=== PATIENT | female | born 1995 | race Caucasian/White ===

== ENCOUNTER 2017-09-14 17:37 | Emergency (ER) | payer BC, MEDICAID ==
[~2017-09-14] VITALS: Ht 160 cm; Wt 52.2 kg
[~2017-09-14 17:37] MED LIST: DEPO PROVERA; MULT-974 PO; NITR-65 PO; SULF1TAB38 PO
[2017-09-14] MEDS ORDERED: KETOROLAC 30 MG/ML VIAL IVP ONE (18:15)
[2017-09-14 18:24] LABS: BASOPHILS # (AUTO) 0.1 10^3/uL (0.0-0.1); BASOPHILS % (AUTO) 1 % (0-10); EOSINOPHILS # (AUTO) 0.1 10^3/uL (0.0-0.3); EOSINOPHILS % (AUTO) 2 % (0-10); HEMATOCRIT 34 % (35-52); HEMOGLOBIN 11.6 G/DL (11.5-16.0); LYMPHOCYTES # (AUTO) 3.1 X 10^3 (1.0-4.0); LYMPHOCYTES % (AUTO) 39 % (12-44); MEAN CORPUSCULAR HEMOGLOBIN 29 PG (25-34); MEAN CORPUSCULAR HGB CONC 34 G/DL (32-36); MEAN CORPUSCULAR VOLUME 86 FL (80-99); MEAN PLATELET VOLUME 12.5 FL (7.4-10.4); MONOCYTES # (AUTO) 0.6 X 10^3 (0.0-1.0); MONOCYTES % (AUTO) 8 % (0-12); NEUTROPHILS # (AUTO) 4.2 X 10^3 (1.8-7.8); NEUTROPHILS % (AUTO) 51 % (42-75); PLATELET COUNT 190 10^3/uL (130-400); RED CELL DISTRIBUTION WIDTH 13.1 % (10.0-14.5); WHITE BLOOD COUNT 8.1 10^3/uL (4.3-11.0)
--- NOTE | 2017-09-14 18:24 | ED Back Pain ---
General Chief Complaint: General Problems/Pain Stated Complaint: CHEST PAIN/BACK PAIN Nursing Triage Note: ARRIVED VIA EMS FROM HOME. COMPLAINS OF CHRONIC BACK PAIN THAT IS WORSE TODAY WITH SOME CHEST PAIN AND SOA. WHEN ASKED WHAT HER MAIN COMPLAINT WAS SHE STATES BACK PAIN. THE PAIN STARTED AFTER SHE HAD HER CHILD 15 MONTHS AGO. Nursing Sepsis Screen: No Definite Risk Source of Information: Patient, Family (grandmother), Spouse (fiance) Exam Limitations: No Limitations History of Present Illness Date Seen by Provider: Sep 14, 2017 Time Seen by Provider: 17:55 Initial Comments Patient presents to the ER by private conveyance with a chief complaint of chronic several year long back pain but today has had an exacerbation. She says last time she saw her doctor for her back pain was about 6 months ago at [facility]. At that time they prescribed her ketorolac and told her to take it once a day as a preventative and she says after several days it did help her back pain but she has ran out of that pain medicine and not taken anything since. She did take 600 mg ibuprofen today but did not feel that it made a difference. She says the back pain starts in her low back radiates to both sides and wraps up around her ribs towards the center of her chest. When it gets really bad like today she says it makes hard for her to take deep breaths. She has a history of depression and anxiety. She is not on any control but her last menstrual period was last week. She says her periods are are regular and she has them 2-3 times a month. Patient says she received a liter of fluids from EMS and 50 g of fentanyl en route and that helped tremendously with her back pain. She says she does not want narcotics because they make her drowsy. Her grandmother says the reason she called the EMS today is because after they ate dinner tonight [place] food about 10 minutes later the patient was screaming in agony in the bathroom and vomiting. She is afraid that maybe it's her gallbladder. She's never had her gallbladder worked up before. She says she was told when she was 2 years ago that she had some gallbladder like symptoms. The patient had no fevers chills cough or diarrhea. Last stool was today normal formed. Patient had no surgeries. She says she's been told she might have polycystic ovarian syndrome and has been sent to a specialist to have this worked up. She has maybe appointment in [place] but she does not wear the doctor's name and has not attended to this appointment yet. Patient denies any primary history of coronary artery disease or dysrhythmias. She denies any primary family history of early onset cardiac , early onset cardiac disease or dysrhythmias. She says she does however have family members with diabetes and gallbladder. Allergies and Home Medications Allergies Coded Allergies: Azithromycin (Unverified Allergy, Mild, 04/11/09) Patient Home Medication List Home Medication List Reviewed: Yes Constitutional: No chills, No diaphoresis EENTM: No hearing loss, No ear pain, No blurred vision, No eye pain Respiratory: No cough, No phlegm; short of breath; No stridor, No wheezing Cardiovascular: see HPI, chest pain; No edema, No Hx of Intervention, No palpitations, No syncope, No vascular heart diseas Gastrointestinal: No abdominal pain, No constipation, No diarrhea; nausea, vomiting Genitourinary: No discharge, No dysuria Control/STD Prophylaxis: None Musculoskeletal: see HPI, back pain (paraspinous lumbar and thoracic muscles), muscle stiffness Skin: No pruritus, No rash Past Endzuyo-Lfevba-Vkwill Hx Patient Social History Alcohol Use: Denies Use Recreational Drug Use: No Smoking Status: Current Everyday Smoker Type Used: Cigarettes (0.5 ppd) Recent Foreign Travel: No Contact w/Someone Who Travel: No Recent Infectious Disease Expo: No Past Medical History Surgeries: No Respiratory: No Cardiac: No Neurological: No : No Gastrointestinal: No Musculoskeletal: Yes Scoliosis, Chronic Back Pain Endocrine: No HEENT: No Cancer: No Psychosocial: Yes Depression Integumentary: No Physical Exam Vital Signs Vital Signs - First Documented 09/14/17 17:37 Temp 98.0 Pulse 82 Resp 16 B/P (MAP) 125/81 (96) Pulse Ox 98 O2 Delivery Room Air Capillary Refill : Less Than 3 Seconds General Appearance: No Apparent Distress, Thin HEENT: PERRL/EOMI, Normal ENT Inspection, Pharynx Normal, Moist Mucous Membranes Neck: Full Range of Motion, Non Tender, Supple Cardiovascular: Regular Rate, Rhythm, Normal Peripheral Pulses Respiratory: Chest Non Tender, Lungs Clear, Normal Breath Sounds, No Accessory Muscle Use, No Respiratory Distress Peripheral Pulses: 2+ Dorsalis Pedis (R), 2+ Left Dors-Pedis (L), 2+ Radial Pulses (R), 2+ Radial Pulses (L) Gastrointestinal: Normal Bowel Sounds, Non Tender, Soft Back: Normal Inspection, No Vertebral Tenderness, Other (mild tenderness to palpation in the left especially paraspinous muscles of the thoracic and lumbar spine.) Neurologic/Psychiatric: Alert, Oriented x3, Depressed Affect, Other (anxious) Skin: Normal Color, Warm/Dry Progress/Results/Core Measures Results/Orders Lab Results Laboratory Tests Test 09/14/17 17:50 09/14/17 18:32 Range/Units White Blood Count 8.1 4.3-11.0 10^3/uL Red Blood Count 4.00 L 4.35-5.85 10^6/uL Hemoglobin 11.6 11.5-16.0 G/DL Hematocrit 34 L 35-52 % Mean Corpuscular Volume 86 80-99 FL Mean Corpuscular Hemoglobin 29 25-34 PG Mean Corpuscular Hemoglobin Concent 34 32-36 G/DL Red Cell Distribution Width 13.1 10.0-14.5 % Platelet Count 190 130-400 10^3/uL Mean Platelet Volume 12.5 H 7.4-10.4 FL Neutrophils (%) (Auto) 51 42-75 % Lymphocytes (%) (Auto) 39 12-44 % Monocytes (%) (Auto) 8 0-12 % Eosinophils (%) (Auto) 2 0-10 % Basophils (%) (Auto) 1 0-10 % Neutrophils # (Auto) 4.2 1.8-7.8 X 10^3 Lymphocytes # (Auto) 3.1 1.0-4.0 X 10^3 Monocytes # (Auto) 0.6 0.0-1.0 X 10^3 Eosinophils # (Auto) 0.1 0.0-0.3 10^3/uL Basophils # (Auto) 0.1 0.0-0.1 10^3/uL Sodium Level 140 135-145 MMOL/L Potassium Level 3.9 3.6-5.0 MMOL/L Chloride Level 108 H 98-107 MMOL/L Carbon Dioxide Level 23 21-32 MMOL/L Anion Gap 9 5-14 MMOL/L Blood Urea Nitrogen 16 7-18 MG/DL Creatinine 0.81 0.60-1.30 MG/DL Estimat Glomerular Filtration Rate > 60 BUN/Creatinine Ratio 20 Glucose Level 104 70-105 MG/DL Calcium Level 9.1 8.5-10.1 MG/DL Magnesium Level 1.7 L 1.8-2.4 MG/DL Total Bilirubin 0.4 0.1-1.0 MG/DL Aspartate Amino Transf (AST/SGOT) 19 5-34 U/L Alanine Aminotransferase (ALT/SGPT) 15 0-55 U/L Alkaline Phosphatase 45 40-136 U/L Troponin I < 0.30 <0.30 NG/ML C-Reactive Protein High Sensitivity 0.23 0.00-0.50 MG/DL Total Protein 6.7 6.4-8.2 GM/DL Albumin 4.0 3.2-4.5 GM/DL Lipase 39 8-78 U/L Serum Test, Qualitative NEGATIVE NEGATIVE Urine Color YELLOW Urine Clarity CLEAR Urine pH 7 5-9 Urine Specific Flushing 1.015 L 1.016-1.022 Urine Protein NEGATIVE NEGATIVE Urine Glucose (UA) NEGATIVE NEGATIVE Urine Ketones NEGATIVE NEGATIVE Urine Nitrite NEGATIVE NEGATIVE Urine Bilirubin NEGATIVE NEGATIVE Urine Urobilinogen NORMAL NORMAL MG/DL Urine Leukocyte Esterase 1+ H NEGATIVE Urine RBC (Auto) NEGATIVE NEGATIVE Urine RBC NONE /HPF Urine WBC 2-5 /HPF Urine Squamous Epithelial Cells 2-5 /HPF Urine Crystals NONE /LPF Urine Bacteria TRACE /HPF Urine Casts NONE /LPF Urine Mucus MODERATE H /LPF Urine Culture Indicated NO Urine Opiates Screen NEGATIVE NEGATIVE Urine Oxycodone Screen NEGATIVE NEGATIVE Urine Methadone Screen NEGATIVE NEGATIVE Urine Propoxyphene Screen NEGATIVE NEGATIVE Urine Barbiturates Screen NEGATIVE NEGATIVE Ur Tricyclic Antidepressants Screen NEGATIVE NEGATIVE Urine Phencyclidine Screen NEGATIVE NEGATIVE Urine Amphetamines Screen NEGATIVE NEGATIVE Urine Methamphetamines Screen NEGATIVE NEGATIVE Urine Benzodiazepines Screen NEGATIVE NEGATIVE Urine Cocaine Screen NEGATIVE NEGATIVE Urine Cannabinoids Screen NEGATIVE NEGATIVE My Orders Orders - JOSAFAT,CADEN J Cbc With Automated Diff (09/14/17 18:15) Comprehensive Metabolic Panel (09/14/17 18:15) Hs C Reactive Protein (09/14/17 18:15) Drug Screen Stat (Urine) (09/14/17 18:15) Hcg,Qualitative Serum (09/14/17 18:15) Lipase (09/14/17 18:15) Magnesium (09/14/17 18:15) Troponin I (09/14/17 18:15) Ua Culture If Indicated (09/14/17 18:15) Chest Pa/Lat (2 View) (09/14/17 18:15) Saline Lock/Iv-Start (09/14/17 18:15) Ketorolac Injection (Toradol Injection) (09/14/17 18:15) Ekg Tracing (09/14/17 18:15) Continuous Ekg Monitoring (09/14/17 18:15) Magnesium Oxide Tablet (Mag Ox Tablet) (09/14/17 19:00) Medications Given in ED Current Medications Medications Dose Ordered Sig/Ambrosio Route Start Time Stop Time Status Last Admin Dose Admin Ketorolac Tromethamine 15 mg ONCE ONCE IVP 09/14/17 18:15 09/14/17 18:19 DC 09/14/17 19:01 15 MG Magnesium Oxide 400 mg ONCE ONCE PO 09/14/17 19:00 09/14/17 19:01 DC 09/14/17 19:27 400 MG Vital Signs/I&O 09/14/17 17:37 Temp 98.0 Pulse 82 Resp 16 B/P (MAP) 125/81 (96) Pulse Ox 98 O2 Delivery Room Air Blood Pressure Mean: 96 Progress Progress Note #1: Time: 18:51 Progress Note The patient's apparent history of generalized anxiety and depression do complicate her presentation. She seems to be describing chronic back pain. Her concern today is whether or not it's coronary and whether or not it could be a gallbladder. She is having a nontender abdomen without Agee sign or McBurney' s point tenderness. She says that she hasn't been told she might have PCO S but she demonstrates no evidence of insulin resistant such as acanthosis nigricans, obesity. She does have a history of irregular periods. Would be reasonable to check a C-peptide outpatient she is rather thin and has had weight loss so type 1 diabetes although a late presentation could be considered. The patient talked all the way through telling history her spine and paraspinous muscles were palpated the first time and did not demonstrate overt evidence of any by halting her speech or wincing or any other indication she was hurting. Does not seem however that she is after secondary gains since she's made it clear that NSAIDs it worked for her in the past and she does not want narcotics. Her weight loss is certainly concerning and it sounds like she's been referred to a specialist by her primary care doctor to help work this up so we have encouraged her to keep this outpatient follow-up appointment. We'll give her some ketorolac. She has already received a liter of fluids and appears to be well hydrated. Progress Note #2: Time: 19:33 Progress Note Pain is better after the ketorolac. We have discussed it and we will put her on some NSAIDs for about 2-4 weeks as well as topical creams and have her follow- up with her specialist at her primary care doctor. Initial ECG Impression Date: Sep 14, 2017 Initial ECG Impression Time: 17:45 Initial ECG Rate: 74 Initial ECG Rhythm: Normal Sinus Initial ECG Intervals: Normal Initial ECG Impression: Normal Initial ECG Comparisson: No Previous ECG Available Comment No ST elevation or depression; no dysrhythmia. Diagnostic Imaging Diagonstic Imaging: Xray Plain Films/CT/US/NM/MRI: chest (2v) Comments VIA [facility] [place], [place] NAME: AIRAM MOHAN Nita [facility] REC#: [id number] PT STATUS: REG ER : 1995 PHYSICIAN: CADEN MAURICE MD ADMIT DATE: 09/14/17/ER Draft Date of Exam:09/14/17 CHEST PA/LAT (2 VIEW) EXAMINATION: PA and lateral chest. COMPARISON: Compared to prior study from 12/25/2012. INDICATION: Chest pain. FINDINGS: The lungs appear to be hyperinflated. This may relate to good inspiratory effort but correlation as to any signs of wheezing or air-trapping appreciated. There is no focal infiltrate. There is no effusion. There is no pneumothorax. Heart size and mediastinal contours are appropriate. Pulmonary vascularity appears normal. IMPRESSION: 1. Lungs appear hyperinflated which may relate to air trapping or good inspiratory effort. Correlation as to any history of asthma or clinical signs of wheezing appreciated. Dictated on workstation # [id number] Dict: 09/14/17 1859 Trans: 09/14/17 [id number] Interpreted by: ION CUEVAS MD Electronically signed by: Reviewed: Reviewed by Me Departure Impression Primary Impression: Back pain Qualified Codes: M54.6 - Pain in thoracic spine; G89.29 - Other chronic pain Additional Impression: Weight loss, non-intentional Disposition: 01 HOME, SELF-CARE Condition: Improved Departure-Patient Inst. Decision time for Depature: 19:34 Referrals: BEVERLY BOSWELL MD (PCP/Family) Primary Care Physician Patient Instructions: Back Exercises Add. Discharge Instructions: For the next 2 weeks start taking the meloxicam one tablet daily. If you feel like you're not getting complete resolution of your back pain in 2 weeks' take it for another 2 weeks. Follow-up with the appointment with the specialist. Afterwards follow-up with her primary care doctor to discuss whether the meloxicam helped her back and discuss what the specialist had to tell you. If you have nausea you can take one tablet of Zofran every 6 hours. If you start to have bad chest pain or acid reflux then you should stop taking the meloxicam and talk to your primary care doctor about it. All discharge instructions reviewed with patient and/or family. Voiced understanding. Scripts Meloxicam (Meloxicam) 7.5 Mg Tablet 7.5 MG PO DAILY for 30 Days, #30 TAB 0 Refills Prov: CADEN MAURICE 09/14/17 Ondansetron (Ondansetron Odt) 4 Mg Tab.rapdis 4 MG PO Q6H PRN for NAUSEA/VOMITING, #14 TAB 0 Refills Prov: CADEN MAURICE 09/14/17 CADEN MAURICE Sep 14, 2017 18:24
[2017-09-14 18:38] LABS: ALANINE AMINOTRANSFERASE 15 U/L (0-55); ALKALINE PHOSPHATASE 45 U/L (40-136); BILIRUBIN,TOTAL 0.4 MG/DL (0.1-1.0); BUN/CREATININE RATIO 20; CALCIUM 9.1 MG/DL (8.5-10.1); CARBON DIOXIDE 23 MMOL/L (21-32); CHLORIDE 108 MMOL/L (98-107); CREATININE SERUM 0.81 MG/DL (0.60-1.30); GFR ESTIMATED > 60; GLUCOSE 104 MG/DL (70-105); LIPASE 39 U/L (8-78); MAGNESIUM 1.7 MG/DL (1.8-2.4); POTASSIUM 3.9 MMOL/L (3.6-5.0); SODIUM 140 MMOL/L (135-145); TOTAL PROTEIN 6.7 GM/DL (6.4-8.2)
[2017-09-14 18:38] LABS: BILIRUBIN,URINE NEGATIVE (NEGATIVE); CLARITY,URINE CLEAR; COLOR,URINE YELLOW; GLUCOSE, URINE (UA) NEGATIVE (NEGATIVE); KETONES,URINE NEGATIVE (NEGATIVE); LEUKOCYTE ESTERASE ,URINE 1+ (NEGATIVE); NITRITE,URINE NEGATIVE (NEGATIVE); PH,URINE 7 (5-9); PROTEIN,URINE NEGATIVE (NEGATIVE); UROBILINOGEN,URINE NORMAL (NORMAL)
[2017-09-14 18:47] LABS: BACTERIA,URINE TRACE /HPF
[2017-09-14 18:54] LABS: AMPHETAMINE SCREEN, URINE NEGATIVE (NEGATIVE); BARBITURATE SCREEN URINE NEGATIVE (NEGATIVE); BENZODIAZEPINES SCREEN URINE NEGATIVE (NEGATIVE); CANNABINOID SCREEN, URINE NEGATIVE (NEGATIVE); COCAINE SCREEN URINE NEGATIVE (NEGATIVE); METHADONE STAT NEGATIVE (NEGATIVE); METHAMPHETAMINE SCREEN URINE S NEGATIVE (NEGATIVE); OPIATE SCREEN URINE NEGATIVE (NEGATIVE); OXYCODONE STAT NEGATIVE (NEGATIVE); PROPOXYPHENE STAT NEGATIVE (NEGATIVE); TRICYCLIC ANTIDEPRESSANTS SCRE NEGATIVE (NEGATIVE)
[2017-09-14] MEDS ORDERED: MAGNESIUM OXIDE (MAG-OX)400 MG TAB PO ONE (19:00)
--- NOTE | 2017-09-14 19:08 | Diagnostic Imaging Report ---
EXAMINATION: PA and lateral chest. COMPARISON: Compared to prior study from 12/25/2012. INDICATION: Chest pain. FINDINGS: The lungs appear to be hyperinflated. This may relate to good inspiratory effort but correlation as to any signs of wheezing or air-trapping appreciated. There is no focal infiltrate. There is no effusion. There is no pneumothorax. Heart size and mediastinal contours are appropriate. Pulmonary vascularity appears normal. IMPRESSION: 1. Lungs appear hyperinflated which may relate to air trapping or good inspiratory effort. Correlation as to any history of asthma or clinical signs of wheezing appreciated. Dictated by: Dictated on workstation # [id number]
[2017-09-14] MEDS ORDERED: ONDA4TAB11 PO (19:36)
[2017-09-14] MEDS ORDERED: MELO7.5T46 PO (19:36)
[2017-09-14 20:00] VITALS: BP 105/65
== END 2017-09-14 19:59 | disposition home or self-care (01) ==
LOC: EDUNIT# 17:37 → ER 17:38
DX: M54.9 Dorsalgia, unspecified (principal); R63.4 Abnormal weight loss; F32.9 Major depressive disorder, single episode, unspecified; F17.210 Nicotine dependence, cigarettes, uncomplicated; Z87.39 Personal history of other diseases of the musculoskeletal system and connective tissue; Z88.1 Allergy status to other antibiotic agents
CPT/HCPCS: 36415; 71046; 80053; 80306; 81000; 83690; 83735; 84484; 84703; 85025; 86141; 93005; 96374